=== PATIENT | male | born 1975 | race Caucasian/White ===

== ENCOUNTER 2025-02-06 09:22 | Emergency (ER) | payer OTHER ==
[2025-02-06 09:40] VITALS: TEMP 98.7; O2SAT 96
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
[2025-02-06 10:50] LABS: Absolute Neutrophil Ct (ANC) 4.29 x10^3/uL (1.78-5.38); BASOPHIL % 0.2 % (0.2-1.2); Basophil (Absolute #) 0.01 x10^3/uL (0.01-0.08); Eosinophil % 1.1 % (0.8-7.0); Eosinophil (Absolute #) 0.07 x10^3/uL (0.04-0.54); Hematocrit 34.6 % (40.1-51.0); Hemoglobin 11.7 g/dL (13.7-17.5); IMMATURE GRAN # 0.01 x10^3u/L (0.001-0.031); IMMATURE GRAN % 0.2 % (0.001-0.429); Lymphocyte (Absolute #) 1.18 x10^3/uL (1.32-3.57); Lymphocytes % 19.2 % (21.8-53.1); Mean Cell Volume 80.1 fL (79.0-92.2); Mean Corpuscular Hemoglobin 27.1 pg (25.7-32.2); Mean Corpuscular Hgb Concent. 33.8 g/dL (32.3-36.5); Mean Platelet Volume 9.9 fL (9.4-12.4); Monocyte (Absolute #) 0.58 x10^3/uL (0.30-0.82); Monocytes % 9.4 % (5.3-12.2); Neutrophil % 69.9 % (34.0-67.9); Platelet Count 209 x10^3/uL (163-337); Red Blood Count 4.32 x10^6/uL (4.63-6.08); Red Cell Distribution Width 14.1 % (11.6-14.4); White Blood Count 6.1 x10^3/uL (4.23-9.07)
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
[2025-02-06 11:15] LABS: ALBUMIN 4.4 g/dL (3.5-5.0); ALKALINE PHOSPHATASE 70 U/L (38-126); ANION GAP 17.4 MEQ/L (5-15); BLOOD UREA NITROGEN 27 mg/dL (9-20); CHLORIDE 106 mmol/L (98-107); Calcium 9.5 mg/dL (8.4-10.2); Carbon Dioxide 21 mmol/L (22-30); EST GLOMERULAR FILTRATION RATE 45.6 ML/MIN; ETHYL ALCOHOL < 10 mg/dL (0-10); Glucose 121 mg/dL (74-106); LIPASE 140 U/L (23-300); Potassium 4.1 mmol/L (3.5-5.1); SGOT/AST 37 U/L (17-59); SGPT/ALT 36 U/L (0-50); SODIUM 141 mmol/L (135-145); Total Protein 6.6 g/dL (6.3-8.2)
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
[2025-02-06 12:02] VITALS: BP 148/79; PULSE 76
[2025-02-06 12:16] LABS: Appearance Clear (Clear); Bacteria None Seen /HPF (None Seen); Bilirubin Negative (Negative); Blood Negative (Negative); Epithelial Cells None Seen /HPF (None Seen); Glucose, Urine Negative (Negative); Hyaline Casts NONE SEEN /LPF (0-2); Ketones Negative (Negative); Leukocyte Esterase Negative (Negative); Nitrite Negative (Negative); Protein,Urine Dip 30 (Negative); RBC 0-2 /HPF (0-5); Specific Gravity <=1.005 (1.005-1.030); Urobilinogen 0.2 mg/dL (0.2); WBC 0-2 /HPF (0-5)
== END 2025-02-06 12:05 | disposition home or self-care (01) ==
LOC: ED 09:22
DX: Z04.1 Encounter for examination and observation following transport accident (principal); S16.1XXA Strain of muscle, fascia and tendon at neck level, initial encounter; S40.012A Contusion of left shoulder, initial encounter; V63.5XXA Driver of heavy transport vehicle injured in collision with car, pick-up truck or van in traffic accident, initial encounter; Y92.411 Interstate highway as the place of occurrence of the external cause; Y99.0 Civilian activity done for income or pay
CPT/HCPCS: 36415; 70450; 71250; 72125; 80053; 81001; 82077; 83690; 84484; 85025; 99285